=== PATIENT | male | born 1970 | race Two or more races ===

== ENCOUNTER 2025-03-27 06:21 | Inpatient (IN) | payer OTHER ==
[~2025-03-27] VITALS: Ht 231.1 cm; Wt 93.4 kg
[~2025-03-27 06:21] MED LIST: COZAAR50 MG PO; VITAMIN D310 MC4
--- NOTE | 2025-03-27 06:40 | NUR ---
SE RECIBE PACIENTE ALERTA Y CONCIENTE X3. EL MISMO REFIERE VENIR CON REFERIDO PARA LV TRANFUSION DE HUMBERTO PARA LV CIRUGIA A REALIZARSE EN LA INSTITUCION POR EL DR. HARIS ALMANZAR CARMEL DE 2024, YA QUE REFIERE DENIZ SALIDO EN LABORATORIOS CON BAJA HEMOGLOBINA. SE PROCEDE A YANELI S/V AL PACIENTE Y SE UBICA EN CAMA 09 CON BARANDAS ELEVADAS Y NIVEL MAS BAJO DE [place].
[2025-03-27] MEDS ORDERED: RINGERS SOLUTION,LACTATED 1,000 ML IV SCH (08:45)
[2025-03-27 11:00] LABS: COL EPI 107 SECONDS (82-175)
[2025-03-27] MEDS ORDERED: PANTOPRAZOLE SODIUM 40 MG/VIAL VIAL IV NR (15:45)
[2025-03-27] MEDS ORDERED: FUROsemide 20 MG/2 ML VIAL IV SCH (15:45)
[2025-03-27] MEDS ORDERED: ENALAPRILAT DIHYDRATE 1.25 MG/ML VIAL IV PRN (15:45)
[2025-03-27] MEDS ORDERED: LOSARTAN POTASSIUM 50 MG TABLET PO NR (15:45)
[2025-03-27 15:57] VITALS: BP 126/72; O2SAT 97
[2025-03-27 16:48] LABS: COL ADP 138 SECONDS (56-102); COL EPI 126 SECONDS (82-175)
[2025-03-28] VITALS: BP 122/67; O2SAT 95
[2025-03-28 09:00] VITALS: BP 120/74; O2SAT 96
[2025-03-28] MEDS ORDERED: PANTOPRAZOLE SODIUM 40 MG/VIAL VIAL IV SCH (09:00)
[2025-03-28] MEDS ORDERED: LOSARTAN POTASSIUM 50 MG TABLET PO SCH (09:00)
[2025-03-28] MEDS ORDERED: POLYETHYLENE GLYCOL 3350 238 GM POWDER PO NR (10:00)
[2025-03-28 10:19] LABS: BASO % 0.5 % (0.1-1.2); EOS % 3.1 % (0.7-7.0); HEMATOCRIT 36.5 % (40.1-51.0); HEMOGLOBIN 10.8 g/dL (13.7-17.5); LYMPH # 1.23 (1.18-3.74); LYMPH % 19.3 % (19.3-53.1); MEAN CORPUSCULAR HEMOGLOBIN 21.9 pg (25.6-32.2); MONO # 0.39 (0.24-0.82); MONO % 6.1 % (4.7-12.5); NEUT # 4.49 (1.56-6.13); NEUT % 70.7 % (34.0-71.1); PLATELET COUNT 138 K/uL (163-369); RED BLOOD COUNT 4.94 M/uL (4.63-6.08); RED CELL DISTRIBUTION WIDTH 19.9 % (11.6-14.4)
[2025-03-28 16:10] VITALS: BP 123/74; O2SAT 95
[2025-03-29 00:14] VITALS: BP 118/72; O2SAT 97
[2025-03-29 07:44] LABS: COL EPI 80 SECONDS (82-175)
[2025-03-29 08:28] VITALS: BP 122/49; O2SAT 98
[2025-03-29] MEDS ORDERED: ONDANSETRON HCL 2 MG/ML VIAL IV PRN (15:00)
[2025-03-29] MEDS ORDERED: 0.9 % SODIUM CHLORIDE 1,000 ML IV SCH (15:00)
[2025-03-29] MEDS ORDERED: MORPHINE SULFATE 4 MG/ML CARTRIDGE IV PRN (15:00)
[2025-03-29] MEDS ORDERED: OxyCODONE HCL 5 MG TABLET (ROXICODONE) PO PRN (15:00)
[2025-03-29] MEDS ORDERED: DEXTROSE 50 % IN WATER 0.5 G/ML VIAL IV PRN (15:00)
[2025-03-29] MEDS ORDERED: HEPARIN SODIUM,PORCINE/PF 100 UNIT/ML SYRINGE IV ONE (16:32)
[2025-03-29] MEDS ORDERED: THROMBIN,HU/FIBRINOGEN/CALCIUM 10 ML SYRINGE TOP ONE (16:34)
[2025-03-29] MEDS ORDERED: HYOSCYAMINE SULFATE 0.125 MG TAB.SUBL SL SCH (17:00)
[2025-03-29] MEDS ORDERED: METRONIDAZOLE/SODIUM CHLORIDE 500 MG/100 ML PIGGYBACK IV SCH (17:00)
[2025-03-29] MEDS ORDERED: POLYETHYLENE GLYCOL 3350 17 GM BLIST.PACK PO SCH (17:00)
[2025-03-29] MEDS ORDERED: GABAPENTIN 300 MG CAPSULE PO SCH (17:00)
[2025-03-29] MEDS ORDERED: ACETAMINOPHEN 500 MG GEL..CAP PO SCH (20:00)
[2025-03-29 20:43] LABS: BASO % 0.2 % (0.1-1.2); HEMATOCRIT 36.6 % (40.1-51.0); HEMOGLOBIN 10.7 g/dL (13.7-17.5); LYMPH # 0.73 (1.18-3.74); LYMPH % 3.9 % (19.3-53.1); MONO # 1.18 (0.24-0.82); MONO % 6.4 % (4.7-12.5); NEUT # 16.53 (1.56-6.13); NEUT % 89.2 % (34.0-71.1); PLATELET COUNT 178 K/uL (163-369); RED BLOOD COUNT 4.86 M/uL (4.63-6.08); RED CELL DISTRIBUTION WIDTH 20.3 % (11.6-14.4)
[2025-03-29 20:49] LABS: ALBUMIN 2.7 gm/dL (3.4-5.0); CALCIUM 7.8 mg/dL (8.5-10.1); CREATININE SERUM 1.1 mg/dL (0.70-1.30); GFR 69.24; PHOSPHOROUS 3.8 mg/dL (2.5-4.9); POTASSIUM 3.03 mEq/L (3.5-5.1)
[2025-03-29] MEDS ORDERED: FAMOTIDINE/PF 20 MG/2 ML VIAL IV PUSH SCH (21:00)
[2025-03-29] MEDS ORDERED: CELECOXIB 200 MG CAPSULE PO SCH (21:00)
[2025-03-29 21:23] LABS: MAGNESIUM 1.1 mg/dL (1.8-2.4)
[2025-03-29] MEDS ORDERED: MAGNESIUM SULFATE IN WATER 2 GM/50 ML PIGGYBAG IV ONE (21:45)
[2025-03-29] MEDS ORDERED: FAMOTIDINE/PF 20 MG/2 ML VIAL ONE (22:28)
[2025-03-30] MEDS ORDERED: METRONIDAZOLE/SODIUM CHLORIDE 500 MG/100 ML PIGGYBACK IV ONE ×2 (00:29→07:34)
[2025-03-30] MEDS ORDERED: MORPHINE SULFATE 4 MG/ML VIAL IV ONE ×2 (00:30→04:30)
[2025-03-30 07:05] LABS: BASO % 0.1 % (0.1-1.2); HEMATOCRIT 36.2 % (40.1-51.0); HEMOGLOBIN 10.7 g/dL (13.7-17.5); LYMPH # 0.71 (1.18-3.74); MEAN CORPUSCULAR HEMOGLOBIN 22.4 pg (25.6-32.2); MONO # 1.85 (0.24-0.82); MONO % 7.7 % (4.7-12.5); NEUT # 21.18 (1.56-6.13); NEUT % 88.4 % (34.0-71.1); PLATELET COUNT 197 K/uL (163-369); RED BLOOD COUNT 4.78 M/uL (4.63-6.08); RED CELL DISTRIBUTION WIDTH 20.1 % (11.6-14.4)
[2025-03-30 07:31] LABS: ALBUMIN 2.8 gm/dL (3.4-5.0); CALCIUM 8.1 mg/dL (8.5-10.1); CREATININE SERUM 1.01 mg/dL (0.70-1.30); GFR 76.41; MAGNESIUM 1.8 mg/dL (1.8-2.4); PHOSPHOROUS 3.8 mg/dL (2.5-4.9); POTASSIUM 4.12 mEq/L (3.5-5.1)
[2025-03-30] MEDS ORDERED: GABAPENTIN 300 MG CAPSULE PO ONE (07:33)
[2025-03-30] MEDS ORDERED: ACETAMINOPHEN 500 MG GEL..CAP PO ONE (07:33)
[2025-03-30] MEDS ORDERED: HYOSCYAMINE SULFATE 0.125 MG TAB.SUBL ONE ×2 (07:33→11:55)
[2025-03-30] MEDS ORDERED: CELECOXIB 200 MG CAPSULE PO ONE (07:33)
[2025-03-30] MEDS ORDERED: PANTOPRAZOLE SODIUM 40 MG/VIAL VIAL ONE (07:33)
[2025-03-30] MEDS ORDERED: FAMOTIDINE/PF 20 MG/2 ML VIAL ONE (07:34)
[2025-03-30 10:39] LABS: ABG PH 7.463 (7.35-7.45); ABG PO2 82.6 mmHg (80-100); ABG pCO2 36.6 mmHg (35-45); BICARBONATE 25.6 mmol/l (23-25); SaO2 96.8 %; Tco2 26.7 mmol/l
[2025-03-30] MEDS ORDERED: Cyanocobalamin/Mecobalamin 1 TAB.SL SL NR (11:20)
[2025-03-30] MEDS ORDERED: SOD FERRIC GLUC COMPLX/SUCROSE 62.5 MG in 0.9 % SODIUM CHLORIDE 50 ML IV SCH (12:00)
[2025-03-30 14:03] VITALS: BP 120/75; O2SAT 92
[2025-03-30 15:28] LABS: allen test SATISFACTORY; mode NASAL CANNULA; o2 32 %; puncture site RADIAL RIGHT
[2025-03-30] MEDS ORDERED: ENOXAPARIN SODIUM 40 MG/0.4 ML SYRINGE SUBCUTANEO SCH (17:00)
[2025-03-30 18:44] VITALS: BP 122/76; O2SAT 93
[2025-03-30 20:22] LABS: ABG PH 7.445 (7.35-7.45); BASE EXCESS 2.6 mmol/l; BICARBONATE 26.8 mmol/l (23-25); SaO2 89.2 %; Tco2 28.1 mmol/l
[2025-03-30 20:28] LABS: ABG PO2 53.7 mmHg (80-100); allen test SATISFACTORY; mode VENTURY MASK; puncture site RADIAL RIGHT
[2025-03-30 20:29] LABS: o2 40 %
[2025-03-30] MEDS ORDERED: LEVALBUTEROL HCL 1.25 MG/3 ML SOLUTION IH SCH (21:00)
[2025-03-30 22:57] LABS: ABG PH 7.455 (7.35-7.45); ABG PO2 76.9 mmHg (80-100); ABG pCO2 39.9 mmHg (35-45); BASE EXCESS 3.3 mmol/l; BICARBONATE 27.4 mmol/l (23-25)
[2025-03-30 22:58] LABS: Tco2 28.6 mmol/l; allen test SATISFACTORY; mode BPAP; o2 100 %; puncture site RADIAL RIGHT
[2025-03-31 00:01] VITALS: BP 146/81; O2SAT 97
[2025-03-31 06:22] LABS: BASO % 0.3 % (0.1-1.2); EOS # 0.01 (0.04-0.54); HEMATOCRIT 31.9 % (40.1-51.0); HEMOGLOBIN 9.4 g/dL (13.7-17.5); LYMPH # 1.05 (1.18-3.74); LYMPH % 3.8 % (19.3-53.1); MEAN CORPUSCULAR HEMOGLOBIN 22.3 pg (25.6-32.2); MONO # 2.35 (0.24-0.82); MONO % 8.5 % (4.7-12.5); NEUT # 23.89 (1.56-6.13); NEUT % 86.7 % (34.0-71.1); PLATELET COUNT 257 K/uL (163-369); RED BLOOD COUNT 4.21 M/uL (4.63-6.08); RED CELL DISTRIBUTION WIDTH 20.6 % (11.6-14.4)
[2025-03-31 08:08] VITALS: BP 120/70; O2SAT 99
[2025-03-31 08:42] LABS: CREATININE SERUM 0.86 mg/dL (0.70-1.30); GFR 91.99; MAGNESIUM 1.7 mg/dL (1.8-2.4); PHOSPHOROUS 2.6 mg/dL (2.5-4.9)
[2025-03-31] MEDS ORDERED: ENOXAPARIN SODIUM 40 MG/0.4 ML SYRINGE SUBCUTANEO SCH (09:00)
[2025-03-31] MEDS ORDERED: Cyanocobalamin/Mecobalamin 1 TAB.SL SL SCH (09:00)
[2025-03-31] MEDS ORDERED: MAGNESIUM SULFATE IN WATER 50 ML IV NR (09:15)
[2025-03-31 11:32] LABS: ABG PH 7.438 (7.35-7.45); ABG PO2 68.5 mmHg (80-100); ABG pCO2 38.8 mmHg (35-45); BASE EXCESS 1.6 mmol/l; BICARBONATE 25.7 mmol/l (23-25); SaO2 94.2 %; Tco2 26.8 mmol/l
[2025-03-31 11:36] LABS: allen test SATISFACTORY; mode BPAP; o2 50 %; puncture site RADIAL RIGHT
[2025-03-31] MEDS ORDERED: CEFTRIAXONE SODIUM 1,000 MG VIAL IV SCH (12:00)
[2025-03-31 12:03] LABS: POTASSIUM 3.48 mEq/L (3.5-5.1)
[2025-03-31] MEDS ORDERED: POTASSIUM CHLORIDE 20MEQ/100ML H2O PB IV NR (14:00)
[2025-03-31 16:26] VITALS: BP 107/65; O2SAT 94
[2025-03-31 18:22] VITALS: BP 116/74; O2SAT 92
[2025-03-31] MEDS ORDERED: FUROsemide 20 MG/2 ML VIAL IV STA (18:44)
[2025-03-31] MEDS ORDERED: VANCOMYCIN HCL 1,000 MG VIAL ONE (19:42)
[2025-03-31] MEDS ORDERED: PIPERACILLIN/TAZOBACTAM SODIUM 3.375 GM in DEXTROSE 5 % IN WATER 100 ML IV SCH (20:00)
[2025-03-31 20:10] LABS: BASO % 0.2 % (0.1-1.2); EOS # 0.01 (0.04-0.54); HEMATOCRIT 28.9 % (40.1-51.0); LYMPH # 1.39 (1.18-3.74); LYMPH % 4.6 % (19.3-53.1); MEAN CORPUSCULAR HEMOGLOBIN 22.5 pg (25.6-32.2); MONO # 2.54 (0.24-0.82); MONO % 8.4 % (4.7-12.5); NEUT # 26.11 (1.56-6.13); NEUT % 85.9 % (34.0-71.1); PLATELET COUNT 298 K/uL (163-369); RED BLOOD COUNT 3.78 M/uL (4.63-6.08); RED CELL DISTRIBUTION WIDTH 20.9 % (11.6-14.4)
[2025-03-31 20:21] LABS: INFLUENZA A AG NEGATIVE (NEGATIVE); INFLUENZA B AG NEGATIVE (NEGATIVE)
[2025-03-31 20:32] LABS: HEMOGLOBIN 8.5 g/dL (13.7-17.5)
[2025-03-31 20:45] LABS: ABG PO2 88.4 mmHg (80-100); ABG pCO2 40.5 mmHg (35-45); BASE EXCESS 3.3 mmol/l; BICARBONATE 27.5 mmol/l (23-25); SaO2 97.3 %; Tco2 28.8 mmol/l
[2025-03-31 20:47] LABS: CALCIUM 8.2 mg/dL (8.5-10.1); CREATININE SERUM 0.92 mg/dL (0.70-1.30); GFR 85.1; MAGNESIUM 2.4 mg/dL (1.8-2.4); POTASSIUM 3.91 mEq/L (3.5-5.1)
[2025-03-31 20:55] LABS: allen test SATISFACTORY; o2 100 %; puncture site RADIAL RIGHT
[2025-03-31 20:56] LABS: mode BPAP
[2025-03-31 20:59] LABS: PHOSPHOROUS 1.6 mg/dL (2.5-4.9)
[2025-03-31] MEDS ORDERED: VANCOMYCIN HCL 1,000 MG VIAL IV SCH (21:00)
[2025-03-31] MEDS ORDERED: GABAPENTIN 300 MG CAPSULE PO SCH (21:00)
[2025-03-31] MEDS ORDERED: POTASSIUM PHOS,M-BASIC-D-BASIC 15 MM in 0.9 % SODIUM CHLORIDE 250 ML IV ONE (21:30)
[2025-04-01 00:24] VITALS: BP 142/88; O2SAT 98
[2025-04-01] MEDS ORDERED: FUROsemide 20 MG/2 ML VIAL IV SCH (01:00)
[2025-04-01 04:20] LABS: BASO % 0.2 % (0.1-1.2); EOS # 0.01 (0.04-0.54); LYMPH # 0.87 (1.18-3.74); LYMPH % 3.7 % (19.3-53.1); MONO # 2.03 (0.24-0.82); MONO % 8.7 % (4.7-12.5); NEUT # 20.27 (1.56-6.13); NEUT % 86.5 % (34.0-71.1); PLATELET COUNT 287 K/uL (163-369); RED BLOOD COUNT 3.44 M/uL (4.63-6.08); RED CELL DISTRIBUTION WIDTH 21.2 % (11.6-14.4)
[2025-04-01 04:32] LABS: HEMATOCRIT 26.2 % (40.1-51.0)
[2025-04-01 04:33] LABS: HEMOGLOBIN 7.9 g/dL (13.7-17.5)
[2025-04-01 04:50] LABS: CREATININE SERUM 0.74 mg/dL (0.70-1.30); GFR 109.41; MAGNESIUM 1.9 mg/dL (1.8-2.4); PHOSPHOROUS 2.7 mg/dL (2.5-4.9); POTASSIUM 3.66 mEq/L (3.5-5.1)
[2025-04-01] MEDS ORDERED: VANCOMYCIN HCL 1,000 MG VIAL ONE ×2 (07:20→16:12)
[2025-04-01] MEDS ORDERED: GABAPENTIN 100 MG CAPSULE PO SCH (09:00)
[2025-04-01] MEDS ORDERED: AMINOCAPROIC ACID 250 MG/ML VIAL IV STA (09:25)
[2025-04-01] MEDS ORDERED: AMINOCAPROIC ACID 250 MG/ML VIAL IV SCH (12:00)
[2025-04-01 14:42] VITALS: BP 134/78; O2SAT 100
[2025-04-01 16:50] VITALS: BP 120/68; O2SAT 95
[2025-04-02 00:46] VITALS: BP 137/74; O2SAT 97
[2025-04-02] MEDS ORDERED: VANCOMYCIN HCL 1,000 MG VIAL ONE (07:20)
[2025-04-02 08:13] VITALS: BP 150/81; O2SAT 97
[2025-04-02 11:00] LABS: BASO % 0.4 % (0.1-1.2); EOS # 0.17 (0.04-0.54); EOS % 0.9 % (0.7-7.0); HEMATOCRIT 37.3 % (40.1-51.0); HEMOGLOBIN 11.5 g/dL (13.7-17.5); LYMPH # 0.73 (1.18-3.74); LYMPH % 3.9 % (19.3-53.1); MEAN CORPUSCULAR HEMOGLOBIN 24.2 pg (25.6-32.2); MONO # 2.25 (0.24-0.82); MONO % 11.9 % (4.7-12.5); NEUT # 15.51 (1.56-6.13); NEUT % 82.2 % (34.0-71.1); PLATELET COUNT 422 K/uL (163-369); RED BLOOD COUNT 4.75 M/uL (4.63-6.08); RED CELL DISTRIBUTION WIDTH 19.7 % (11.6-14.4)
[2025-04-02 11:58] LABS: CALCIUM 8.6 mg/dL (8.5-10.1); CREATININE SERUM 0.78 mg/dL (0.70-1.30); GFR 102.96; MAGNESIUM 1.6 mg/dL (1.8-2.4); PHOSPHOROUS 2.7 mg/dL (2.5-4.9); POTASSIUM 3.59 mEq/L (3.5-5.1)
[2025-04-02 13:35] LABS: ABG PH 7.451 (7.35-7.45); ABG pCO2 36.6 mmHg (35-45); BASE EXCESS 1.3 mmol/l; BICARBONATE 24.9 mmol/l (23-25); SaO2 91.6 %; Tco2 26.1 mmol/l
[2025-04-02 13:57] LABS: ABG PO2 58.8 mmHg (80-100); o2 21 %; puncture site RADIAL LEFT
[2025-04-02 13:58] LABS: allen test SATISFACTORY; mode ROOM AIR
[2025-04-02] MEDS ORDERED: MAGNESIUM SULFATE IN WATER 50 ML IV NR (14:00)
[2025-04-02 16:47] VITALS: BP 135/71; O2SAT 95
[2025-04-02 20:07] VITALS: O2SAT 90
[2025-04-02] MEDS ORDERED: VANCOMYCIN HCL 5 MG/ML REDILUIDO IV SCH (21:00)
[2025-04-03] VITALS (8 sets, daily range): BP systolic 147–159; BP diastolic 79–89; O2SAT 91–100
[2025-04-03 07:32] LABS: BASO % 0.4 % (0.1-1.2); EOS # 0.14 (0.04-0.54); EOS % 0.8 % (0.7-7.0); HEMATOCRIT 38.4 % (40.1-51.0); HEMOGLOBIN 11.9 g/dL (13.7-17.5); LYMPH % 6.5 % (19.3-53.1); MEAN CORPUSCULAR HEMOGLOBIN 24.1 pg (25.6-32.2); MONO # 2.69 (0.24-0.82); NEUT # 12.78 (1.56-6.13); NEUT % 75.6 % (34.0-71.1); PLATELET COUNT 470 K/uL (163-369); RED BLOOD COUNT 4.93 M/uL (4.63-6.08); RED CELL DISTRIBUTION WIDTH 20.9 % (11.6-14.4)
[2025-04-03 07:41] LABS: MONO % 15.9 % (4.7-12.5)
[2025-04-03 08:09] LABS: CALCIUM 8.8 mg/dL (8.5-10.1); CREATININE SERUM 0.66 mg/dL (0.70-1.30); GFR 124.85; PHOSPHOROUS 2.7 mg/dL (2.5-4.9); POTASSIUM 3.56 mEq/L (3.5-5.1)
[2025-04-04] VITALS (8 sets, daily range): BP systolic 129–134; BP diastolic 74–83; O2SAT 90–100
[2025-04-05] VITALS (8 sets, daily range): BP systolic 142–155; BP diastolic 75–92; O2SAT 86–100
[2025-04-05 08:10] LABS: BASO % 0.5 % (0.1-1.2); EOS % 4.5 % (0.7-7.0); HEMATOCRIT 37.1 % (40.1-51.0); HEMOGLOBIN 11.2 g/dL (13.7-17.5); LYMPH # 1.44 (1.18-3.74); LYMPH % 7.2 % (19.3-53.1); MEAN CORPUSCULAR HEMOGLOBIN 24.1 pg (25.6-32.2); MONO # 2.02 (0.24-0.82); NEUT % 77.1 % (34.0-71.1); PLATELET COUNT 540 K/uL (163-369); RED BLOOD COUNT 4.65 M/uL (4.63-6.08); RED CELL DISTRIBUTION WIDTH 21.4 % (11.6-14.4)
[2025-04-05 09:09] LABS: CALCIUM 8.1 mg/dL (8.5-10.1); CREATININE SERUM 0.54 mg/dL (0.70-1.30); GFR 157.39; MAGNESIUM 1.6 mg/dL (1.8-2.4); PHOSPHOROUS 2.7 mg/dL (2.5-4.9); POTASSIUM 3.42 mEq/L (3.5-5.1)
[2025-04-05] MEDS ORDERED: MAGNESIUM SULFATE IN WATER 50 ML IV NR (11:00)
[2025-04-05] MEDS ORDERED: DIATRIZOATE MEGLUMINE, SODIUM 30 ML BOTTLE PO NR (12:15)
[2025-04-05] MEDS ORDERED: POTASSIUM CHLORIDE 20MEQ/100ML H2O PB IV NR (13:00)
[2025-04-05 14:41] LABS: ABG PH 7.475 (7.35-7.45)
[2025-04-05 14:42] LABS: ABG PO2 233.1 mmHg (80-100); ABG pCO2 32.7 mmHg (35-45); BASE EXCESS 0.7 mmol/l; BICARBONATE 23.5 mmol/l (23-25); SaO2 99.8 %; Tco2 24.6 mmol/l; allen test SATISFACTORY; mode BPAP; o2 100 %; puncture site BRADIAL RIGHT
[2025-04-05] MEDS ORDERED: LINEZOLID IN DEXTROSE 5% 300 ML IV SCH (21:00)
[2025-04-06 01:35] VITALS: BP 144/79; O2SAT 96
[2025-04-06 07:12] LABS: BASO % 0.5 % (0.1-1.2); EOS % 3.8 % (0.7-7.0); HEMATOCRIT 39.3 % (40.1-51.0); HEMOGLOBIN 12.2 g/dL (13.7-17.5); LYMPH # 2.29 (1.18-3.74); LYMPH % 12.3 % (19.3-53.1); MEAN CORPUSCULAR HEMOGLOBIN 24.5 pg (25.6-32.2); MONO # 1.49 (0.24-0.82); NEUT # 13.81 (1.56-6.13); NEUT % 74.2 % (34.0-71.1); PLATELET COUNT 627 K/uL (163-369); RED BLOOD COUNT 4.98 M/uL (4.63-6.08); RED CELL DISTRIBUTION WIDTH 21.4 % (11.6-14.4)
[2025-04-06 08:17] LABS: CALCIUM 8.3 mg/dL (8.5-10.1); CREATININE SERUM 0.63 mg/dL (0.70-1.30); GFR 131.74; MAGNESIUM 1.8 mg/dL (1.8-2.4); POTASSIUM 3.11 mEq/L (3.5-5.1)
[2025-04-06 09:04] VITALS: BP 148/78; O2SAT 90
[2025-04-06] MEDS ORDERED: POTASSIUM CHLORIDE 20MEQ/100ML H2O PB IV NR (10:00)
[2025-04-06 14:19] VITALS: O2SAT 93
[2025-04-06 16:00] VITALS: BP 127/69; O2SAT 94
[2025-04-06 16:43] VITALS: O2SAT 96
[2025-04-06 19:53] VITALS: O2SAT 90
[2025-04-06] MEDS ORDERED: LINEZOLID 600 MG TABLET PO SCH (21:00)
[2025-04-07] VITALS (7 sets, daily range): BP systolic 134–148; BP diastolic 72–86; O2SAT 90–97
[2025-04-07] MEDS ORDERED: PIPERACILLIN/TAZOBACTAM SODIUM 3.375 GM VIAL IV ONE (15:24)
[2025-04-08] VITALS (8 sets, daily range): BP systolic 127–146; BP diastolic 72–86; O2SAT 90–99
[2025-04-08 07:08] LABS: BASO % 0.7 % (0.1-1.2); EOS # 0.93 (0.04-0.54); EOS % 3.9 % (0.7-7.0); HEMATOCRIT 37.4 % (40.1-51.0); HEMOGLOBIN 11.5 g/dL (13.7-17.5); LYMPH # 1.94 (1.18-3.74); LYMPH % 8.1 % (19.3-53.1); MEAN CORPUSCULAR HEMOGLOBIN 24.5 pg (25.6-32.2); MONO % 7.9 % (4.7-12.5); NEUT # 18.92 (1.56-6.13); NEUT % 78.5 % (34.0-71.1); PLATELET COUNT 605 K/uL (163-369); RED CELL DISTRIBUTION WIDTH 21.7 % (11.6-14.4)
[2025-04-08 07:34] LABS: CALCIUM 8.2 mg/dL (8.5-10.1); CREATININE SERUM 0.67 mg/dL (0.70-1.30); GFR 122.7; MAGNESIUM 1.5 mg/dL (1.8-2.4); PHOSPHOROUS 3.4 mg/dL (2.5-4.9); POTASSIUM 3.34 mEq/L (3.5-5.1)
[2025-04-08] MEDS ORDERED: MAGNESIUM SULFATE IN WATER 50 ML IV NR (11:30)
[2025-04-08] MEDS ORDERED: POTASSIUM CHLORIDE 20MEQ/100ML H2O PB IV NR (13:00)
[2025-04-09] VITALS: O2SAT 97
[2025-04-09 00:05] VITALS: BP 137/83; O2SAT 99
[2025-04-09 04:00] VITALS: O2SAT 96
[2025-04-09 07:30] VITALS: BP 138/83; O2SAT 90
[2025-04-09 08:20] LABS: ABG PH 7.475 (7.35-7.45); ABG PO2 69.6 mmHg (80-100); ABG pCO2 35.7 mmHg (35-45); BASE EXCESS 2.4 mmol/l; BICARBONATE 25.7 mmol/l (23-25); SaO2 95.1 %; Tco2 26.8 mmol/l
[2025-04-09] MEDS ORDERED: FUROsemide 20 MG/2 ML VIAL IV NR (09:00)
[2025-04-09] MEDS ORDERED: GABAPENTIN 100 MG CAPSULE PO SCH (09:00)
[2025-04-09 09:13] VITALS: O2SAT 96
[2025-04-09 12:34] VITALS: O2SAT 90
[2025-04-09 13:00] LABS: allen test SATISFACTORY; mode NASAL CANNULA; o2 36 %; puncture site RADIAL LEFT
[2025-04-09] MEDS ORDERED: FLUCONAZOLE IN NACL,ISO-OSM 400 MG/200 ML PIGGYBAG IV NR (17:00)
[2025-04-10 00:43] VITALS: BP 125/76; O2SAT 98
[2025-04-10 05:17] LABS: EOS # 1.08 (0.04-0.54); EOS % 6.1 % (0.7-7.0); HEMATOCRIT 34.6 % (40.1-51.0); HEMOGLOBIN 10.6 g/dL (13.7-17.5); LYMPH # 1.53 (1.18-3.74); LYMPH % 8.7 % (19.3-53.1); MEAN CORPUSCULAR HEMOGLOBIN 24.1 pg (25.6-32.2); MONO # 1.47 (0.24-0.82); MONO % 8.4 % (4.7-12.5); NEUT % 75.2 % (34.0-71.1); PLATELET COUNT 625 K/uL (163-369); RED BLOOD COUNT 4.39 M/uL (4.63-6.08); RED CELL DISTRIBUTION WIDTH 21.7 % (11.6-14.4)
[2025-04-10 05:55] LABS: ALBUMIN 2.2 gm/dL (3.4-5.0); BILIRUBIN TOTAL 0.77 mg/dL (0.3-1.2); CALCIUM 7.8 mg/dL (8.5-10.1); CREATININE SERUM 0.55 mg/dL (0.70-1.30); GFR 154.09; GLOBULINA 3.5 G/DL (2.4-3.5); MAGNESIUM 1.5 mg/dL (1.8-2.4); PHOSPHOROUS 3.1 mg/dL (2.5-4.9); POTASSIUM 3.23 mEq/L (3.5-5.1); TOTAL PROTEIN 5.7 gm/dL (6.4-8.2)
[2025-04-10 08:00] VITALS: BP 137/77; O2SAT 96
[2025-04-10] MEDS ORDERED: MAGNESIUM SULFATE IN WATER 50 ML IV NR (09:00)
[2025-04-10] MEDS ORDERED: POTASSIUM CHLORIDE 20MEQ/100ML H2O PB IV NR (11:00)
[2025-04-10] MEDS ORDERED: SOD FERRIC GLUC COMPLX/SUCROSE 62.5 MG in 0.9 % SODIUM CHLORIDE 50 ML IV NR (11:00)
[2025-04-10] MEDS ORDERED: FLUCONAZOLE IN NACL,ISO-OSM 100 ML IV SCH (12:00)
[2025-04-10 12:27] VITALS: O2SAT 94
[2025-04-10 16:00] VITALS: BP 127/55; O2SAT 97
[2025-04-10 17:00] VITALS: O2SAT 96
[2025-04-11 00:57] VITALS: BP 153/75; O2SAT 96
[2025-04-11 01:49] VITALS: O2SAT 94
[2025-04-11 06:02] VITALS: O2SAT 90
[2025-04-11 08:30] VITALS: BP 146/85; O2SAT 95
[2025-04-11] MEDS ORDERED: SOD FERRIC GLUC COMPLX/SUCROSE 62.5 MG in 0.9 % SODIUM CHLORIDE 50 ML IV SCH (09:00)
[2025-04-11 11:01] VITALS: O2SAT 90
[2025-04-11 16:00] VITALS: BP 123/72; O2SAT 96
[2025-04-11] MEDS ORDERED: HYOSCYAMINE SULFATE 0.125 MG TAB.SUBL SL PRN (19:24)
[2025-04-12] VITALS: BP 145/86; O2SAT 95
[2025-04-12 07:06] LABS: BASO % 1.1 % (0.1-1.2); EOS # 0.84 (0.04-0.54); HEMATOCRIT 36.3 % (40.1-51.0); HEMOGLOBIN 10.9 g/dL (13.7-17.5); LYMPH # 1.66 (1.18-3.74); LYMPH % 9.9 % (19.3-53.1); MEAN CORPUSCULAR HEMOGLOBIN 24.3 pg (25.6-32.2); MONO # 1.57 (0.24-0.82); MONO % 9.3 % (4.7-12.5); NEUT % 74.2 % (34.0-71.1); PLATELET COUNT 717 K/uL (163-369); RED BLOOD COUNT 4.49 M/uL (4.63-6.08); RED CELL DISTRIBUTION WIDTH 22.8 % (11.6-14.4)
[2025-04-12 07:20] LABS: CALCIUM 8.3 mg/dL (8.5-10.1); CREATININE SERUM 0.63 mg/dL (0.70-1.30); GFR 131.74; MAGNESIUM 1.8 mg/dL (1.8-2.4); PHOSPHOROUS 2.8 mg/dL (2.5-4.9); POTASSIUM 3.88 mEq/L (3.5-5.1)
[2025-04-12 07:21] LABS: C-REACTIVE PROTEIN 4.1 MG/DL (0.00-0.29)
[2025-04-12 08:59] VITALS: BP 150/81; O2SAT 97
[2025-04-12 16:22] VITALS: BP 158/84; O2SAT 94
[2025-04-12] MEDS ORDERED: [UNRECOGNIZED DRUG - OTHER] IM NR (18:00)
[2025-04-12] MEDS ORDERED: INFLUENZA VACCINE IM NR (18:00)
[2025-04-12] MEDS ORDERED: HAEMOPH B POLY CONJ-TET TOX/PF 1 VIAL VIAL IM SCH (18:00)
[2025-04-12] MEDS ORDERED: [UNRECOGNIZED DRUG - OTHER] IM NR (18:00)
[2025-04-12] MEDS ORDERED: PNEUMOC 20-VAL CONJ-DIP CRM/PF 0.5 ML SYRINGE IM NR (18:00)
[2025-04-13 01:21] VITALS: BP 136/85; O2SAT 96
[2025-04-13] MEDS ORDERED: DIATRIZOATE MEGLUMINE, SODIUM 30 ML BOTTLE PO NR (06:00)
[2025-04-13] MEDS ORDERED: ONDANSETRON HCL 2 MG/ML VIAL IV STA (07:53)
[2025-04-13 08:42] VITALS: BP 146/91; O2SAT 94
[2025-04-13] MEDS ORDERED: LEVALBUTEROL HCL 1.25 MG/3 ML SOLUTION IH SCH (09:00)
[2025-04-13 09:20] LABS: ABG PH 7.482 (7.35-7.45); ABG pCO2 34.6 mmHg (35-45); BASE EXCESS 2.3 mmol/l; BICARBONATE 25.4 mmol/l (23-25); SaO2 92.6 %; Tco2 26.4 mmol/l
[2025-04-13 09:41] LABS: ABG PO2 59.6 mmHg (80-100)
[2025-04-13 09:42] LABS: allen test SATISFACTORY; mode ROOM AIR; o2 21 %; puncture site RADIAL RIGHT
[2025-04-13 16:00] VITALS: BP 133/71; O2SAT 95
[2025-04-13 16:22] VITALS: O2SAT 93
[2025-04-13 19:42] VITALS: O2SAT 91
[2025-04-14] VITALS (8 sets, daily range): BP systolic 132–137; BP diastolic 79–80; O2SAT 90–100
[2025-04-14 08:28] LABS: BASO % 1.1 % (0.1-1.2); EOS # 0.68 (0.04-0.54); HEMATOCRIT 34.8 % (40.1-51.0); HEMOGLOBIN 10.9 g/dL (13.7-17.5); LYMPH % 8.9 % (19.3-53.1); MEAN CORPUSCULAR HEMOGLOBIN 25.2 pg (25.6-32.2); MONO # 1.81 (0.24-0.82); MONO % 10.7 % (4.7-12.5); NEUT # 12.53 (1.56-6.13); NEUT % 74.5 % (34.0-71.1); PLATELET COUNT 657 K/uL (163-369); RED BLOOD COUNT 4.32 M/uL (4.63-6.08); RED CELL DISTRIBUTION WIDTH 22.6 % (11.6-14.4)
[2025-04-14 09:02] LABS: CALCIUM 8.4 mg/dL (8.5-10.1); CREATININE SERUM 0.67 mg/dL (0.70-1.30); GFR 122.7; MAGNESIUM 1.5 mg/dL (1.8-2.4); PHOSPHOROUS 3.3 mg/dL (2.5-4.9); POTASSIUM 3.52 mEq/L (3.5-5.1)
[2025-04-14 09:05] LABS: C-REACTIVE PROTEIN 5.26 MG/DL (0.00-0.29)
[2025-04-14] MEDS ORDERED: MAGNESIUM SULFATE IN WATER 50 ML IV NR (10:00)
[2025-04-14] MEDS ORDERED: SODIUM CHLORIDE FOR INHALATION 1 VIAL.NEB IH SCH (21:00)
[2025-04-15] VITALS (9 sets, daily range): BP systolic 134–139; BP diastolic 83–84; O2SAT 87–96
[2025-04-15] MEDS ORDERED: SODIUM CHLORIDE FOR INHALATION 1 VIAL.NEB IH SCH (09:00)
[2025-04-15 21:40] LABS: MONONUCLEAR 69.4 %; PLEURAL FLUID WBC 0.951 10E3/uL; POLYMORPHONUCLEAR 30.6 %
[2025-04-15 21:44] LABS: PLEURAL FLUID APPEARANCE TURBID
[2025-04-15 21:47] LABS: PLEURAL FLUID COLOR XANTHOCROMIC
[2025-04-15 22:20] LABS: TP PLEURAL FLUID 4.2 g/dl
[2025-04-16] VITALS (9 sets, daily range): BP systolic 125–144; BP diastolic 70–82; O2SAT 90–95
[2025-04-16 07:53] LABS: BASO % 1.2 % (0.1-1.2); EOS # 0.41 (0.04-0.54); EOS % 3.2 % (0.7-7.0); HEMATOCRIT 35.7 % (40.1-51.0); HEMOGLOBIN 11.1 g/dL (13.7-17.5); LYMPH # 1.39 (1.18-3.74); LYMPH % 10.7 % (19.3-53.1); MEAN CORPUSCULAR HEMOGLOBIN 25.2 pg (25.6-32.2); MONO # 1.57 (0.24-0.82); NEUT # 9.43 (1.56-6.13); NEUT % 72.4 % (34.0-71.1); PLATELET COUNT 595 K/uL (163-369); RED BLOOD COUNT 4.41 M/uL (4.63-6.08); RED CELL DISTRIBUTION WIDTH 22.9 % (11.6-14.4)
[2025-04-16 08:11] LABS: MONO % 12.1 % (4.7-12.5)
[2025-04-16 08:22] LABS: CALCIUM 8.4 mg/dL (8.5-10.1); CREATININE SERUM 0.87 mg/dL (0.70-1.30); GFR 90.77; MAGNESIUM 1.6 mg/dL (1.8-2.4); PHOSPHOROUS 2.9 mg/dL (2.5-4.9); POTASSIUM 3.67 mEq/L (3.5-5.1)
[2025-04-16 09:20] LABS: ABG PH 7.436 (7.35-7.45); ABG PO2 67.6 mmHg (80-100); BASE EXCESS 0.5 mmol/l; BICARBONATE 24.4 mmol/l (23-25); SaO2 93.9 %; Tco2 25.5 mmol/l
[2025-04-16 09:36] LABS: allen test SATISFACTORY; mode ROOM AIR; puncture site RADIAL RIGHT
[2025-04-16 09:37] LABS: o2 21 %
[2025-04-16] MEDS ORDERED: MAGNESIUM SULFATE IN WATER 50 ML IV NR (11:00)
[2025-04-17] VITALS (8 sets, daily range): BP systolic 125–148; BP diastolic 69–80; O2SAT 88–97
[2025-04-18] VITALS (9 sets, daily range): BP systolic 136–150; BP diastolic 72–87; O2SAT 89–98
[2025-04-18 07:22] LABS: CALCIUM 8.7 mg/dL (8.5-10.1); CREATININE SERUM 0.66 mg/dL (0.70-1.30); GFR 124.85; POTASSIUM 3.72 mEq/L (3.5-5.1)
[2025-04-18 08:15] LABS: BASO % 1.9 % (0.1-1.2); EOS # 0.45 (0.04-0.54); EOS % 3.9 % (0.7-7.0); HEMATOCRIT 35.9 % (40.1-51.0); HEMOGLOBIN 11.2 g/dL (13.7-17.5); LYMPH # 1.15 (1.18-3.74); LYMPH % 9.9 % (19.3-53.1); MEAN CORPUSCULAR HEMOGLOBIN 24.9 pg (25.6-32.2); MONO # 1.48 (0.24-0.82); NEUT # 8.23 (1.56-6.13); NEUT % 71.1 % (34.0-71.1); PLATELET COUNT 475 K/uL (163-369); RED CELL DISTRIBUTION WIDTH 23.5 % (11.6-14.4)
[2025-04-18 08:33] LABS: MONO % 12.8 % (4.7-12.5)
[2025-04-19 00:25] VITALS: BP 141/82; O2SAT 96
[2025-04-19 05:50] VITALS: O2SAT 90
[2025-04-19 06:21] LABS: BASO % 1.3 % (0.1-1.2); EOS # 0.59 (0.04-0.54); EOS % 4.5 % (0.7-7.0); HEMATOCRIT 36.9 % (40.1-51.0); HEMOGLOBIN 11.4 g/dL (13.7-17.5); LYMPH # 1.75 (1.18-3.74); LYMPH % 13.5 % (19.3-53.1); MEAN CORPUSCULAR HEMOGLOBIN 25.1 pg (25.6-32.2); MONO # 1.35 (0.24-0.82); MONO % 10.4 % (4.7-12.5); NEUT # 9.09 (1.56-6.13); NEUT % 69.8 % (34.0-71.1); PLATELET COUNT 400 K/uL (163-369); RED BLOOD COUNT 4.54 M/uL (4.63-6.08); RED CELL DISTRIBUTION WIDTH 23.6 % (11.6-14.4)
[2025-04-19 08:50] VITALS: BP 128/66; O2SAT 95
[2025-04-19 09:09] VITALS: O2SAT 92
[2025-04-19] MEDS ORDERED: TRAM1TAB98 PO (11:15)
[2025-04-19] MEDS ORDERED: HYOSCYAMINE0.125 M1 SL (11:15)
== END 2025-04-19 13:02 | disposition home or self-care (01) | DRG 330 ==
LOC: ER 06:21 → SURG 09:25 → SURH 04-09 16:56
PROVIDERS: Internal Medicine; Internal Medicine Infectious Disease; Radiology Vascular & Interventional Radiology; Surgery; ADMIT Internal Medicine Geriatric Medicine; ATTEND Internal Medicine Geriatric Medicine
PROC: 30233N1 Transfusion of Nonautologous Red Blood Cells into Peripheral Vein, Percutaneous Approach (ICD-10-PCS; 2025-03-27)
PROC: 0DBU0ZZ Excision of Omentum, Open Approach (ICD-10-PCS; 2025-03-29)
PROC: 0DJD4ZZ Inspection of Lower Intestinal Tract, Percutaneous Endoscopic Approach (ICD-10-PCS; 2025-03-29)
PROC: 0DTG0ZZ Resection of Left Large Intestine, Open Approach (ICD-10-PCS; principal; 2025-03-29 21:45)
PROC: 3E0F7GC Introduction of Other Therapeutic Substance into Respiratory Tract, Via Natural or Artificial Opening (ICD-10-PCS; 2025-03-30)
PROC: B32SYZZ Computerized Tomography (CT Scan) of Right Pulmonary Artery using Other Contrast (ICD-10-PCS; 2025-03-31)
PROC: 4A12X4Z Monitoring of Cardiac Electrical Activity, External Approach (ICD-10-PCS; 2025-03-31)
PROC: 5A09457 Assistance with Respiratory Ventilation, 24-96 Consecutive Hours, Continuous Positive Airway Pressure (ICD-10-PCS; 2025-03-31)
PROC: B32TYZZ Computerized Tomography (CT Scan) of Left Pulmonary Artery using Other Contrast (ICD-10-PCS; 2025-03-31)
PROC: BB24ZZZ Computerized Tomography (CT Scan) of Bilateral Lungs (ICD-10-PCS; 2025-04-05)
PROC: BW21YZZ Computerized Tomography (CT Scan) of Abdomen and Pelvis using Other Contrast (ICD-10-PCS; 2025-04-05)
PROC: 8E0ZXY6 Isolation (ICD-10-PCS; 2025-04-10)
PROC: BW21YZZ Computerized Tomography (CT Scan) of Abdomen and Pelvis using Other Contrast (ICD-10-PCS; 2025-04-13)
PROC: BB24YZZ Computerized Tomography (CT Scan) of Bilateral Lungs using Other Contrast (ICD-10-PCS; 2025-04-13)
PROC: 0W993ZZ Drainage of Right Pleural Cavity, Percutaneous Approach (ICD-10-PCS; 2025-04-15)
DX: C18.5 Malignant neoplasm of splenic flexure (principal); B49 Unspecified mycosis; D62 Acute posthemorrhagic anemia; J98.11 Atelectasis; K92.1 Melena; J90 Pleural effusion, not elsewhere classified; J95.89 Other postprocedural complications and disorders of respiratory system, not elsewhere classified; R09.02 Hypoxemia; D72.828 Other elevated white blood cell count; D75.838 Other thrombocytosis; D64.89 Other specified anemias; R59.0 Localized enlarged lymph nodes; I10 Essential (primary) hypertension; Z53.31 Laparoscopic surgical procedure converted to open procedure